=== PATIENT | female | born 1995 | race Caucasian/White ===

== ENCOUNTER 2024-03-18 12:54 | Outpatient (CLI) | payer OTHER, SELFPAY ==
[2024-03-18 13:20] VITALS: BP 109/67; PULSE 87
[2024-03-18 13:30] VITALS: BP 112/71; PULSE 88
[2024-03-18 14:13] LABS: Appearance Urine Cloudy (Clear); Bacteria Urine Rare /hpf; Bilirubin Urine Negative (Negative); Blood Urine Negative (Negative); Color Urine Yellow (Yellow); Glucose Urine UA Negative (Negative); Ketones Urine Trace mg/dL (Negative); Leukocyte Esterase Ur 1+ LEU/UL (Negative); Nitrate Urine Negative (Negative); Non Pathogenic Casts 0-2; Protein Urine Negative (Negative); RBC Urine 0-2 /hpf (0-2); Specific Grav Ur 1.019 (1.001-1.035); Squamous Epithelial Cell Urine Moderate /hpf (Few); pH Urine 7.5 (5.0-9.0)
[2024-03-18 14:18] LABS: Add Urine Microscopic? YES
[2024-03-18 14:22] VITALS: BP 112/71; PULSE 87
--- NOTE | 2024-03-18 14:27 | PC.NURSE ---
Dr. Dhillon (covering for Dr. Sharp) informed of pt's arrival with c/o leakage of fluid last night, also states she had a period where she had 8-9 contractions/hr last night, 3 contractions noted today in over 1 hr, reactive NST, ROM plus was negative. Discussed UA results that were sent due to pt c/o increased urinary frequency over the last few days. Order for discharge received.
== END 2024-03-18 14:36 | disposition home or self-care (01) ==
LOC: ANHOBOP 13:01 → ANHOBPP 13:01
PROVIDERS: Obstetrics & Gynecology; Visit Provider Obstetrics & Gynecology
DX: O42.90 Premature rupture of membranes, unspecified as to length of time between rupture and onset of labor, unspecified weeks of gestation (principal); Z3A.00 Weeks of gestation of pregnancy not specified
CPT/HCPCS: 59025; 81001; 84112; 87086; 99199

== ENCOUNTER 2024-03-27 22:54 | Observation (INO) | payer OTHER, SELFPAY ==
--- NOTE | 2024-03-27 23:21 | OBADM ---
This patient, Janna Talbot, admitted to the OB room Labor/Delivery/Recovery 105 for observation. Patient/family oriented to hospital policies and general routines including ID bracelet, bed and alarms, visiting hours, pain management, procedures, bathroom and other care routines, personal items, smoking policy, room service/diet, and visiting hours. Patient/Family are encouraged to report perceived risks to care and to ask questions if they do not understand what they are told or what they should do.
[2024-03-27 23:28] VITALS: BP 117/72; PULSE 83
[2024-03-27 23:28] LABS: Appearance Urine Cloudy (Clear); Bacteria Urine 1+ /hpf; Bilirubin Urine Negative (Negative); Blood Urine Negative (Negative); Color Urine Dark Yellow (Yellow); Glucose Urine UA Negative (Negative); Ketones Urine 2+ mg/dL (Negative); Leukocyte Esterase Ur 1+ LEU/UL (Negative); Nitrate Urine Negative (Negative); Non Pathogenic Casts 0-2; Protein Urine Trace mg/dL (Negative); RBC Urine 0-2 /hpf (0-2); Squamous Epithelial Cell Urine Moderate /hpf (Few); pH Urine 5.5 (5.0-9.0)
[2024-03-27 23:35] LABS: Add Urine Microscopic? YES
--- NOTE | 2024-03-27 23:48 | PC.NURSE ---
2141- MD called and made aware of pts arrival to the unit, chief c/o contractions and lower back pain as well as feelings of urinary retention. MD made aware of UA results. Orders received to orally hydrate, perform SVE and repeat SVE in one hour.
[2024-03-28] VITALS: BP 126/72; PULSE 83
[2024-03-28] MEDS: ACETAMINOPHEN 500 MG TABLET 1000 MG PO (01:04)
--- NOTE | 2024-03-28 01:07 | PC.NURSE ---
0054- RN called MD and updated her on SVE as well as contraction pattern and heart tracing. MD updated on pts back discomfort. Order received for 1gm of Tylenol or 5-7mg of IM Morphine. RN to repeat SVE in 1 hour. Orders received to call back if cervical change is made or to discharge if vital signs/ FHT tracing is reassuring/ and no cervical change is made. 0103- RN discussed plan of care with pt. RN then offered pt tylenol or morphine. Pt chooses Tylenol and agrees with plan of care. no questions at this time.
--- NOTE | 2024-03-31 07:58 | P.PNOB_ITS ---
OB - Triage/Final Diagnosis Visit Information Comments/Additional reasons for admission: I have assessed the risk for this patient, Janna Talbot, and determined that she would benefit from observation care. Evaluation Laboratory results: Laboratory Tests 03/27/24 23:15 Urine Color Dark yellow Urine Appearance Cloudy H Urine pH 5.5 Ur Specific [place] 1.030 Urine Protein Trace Urine Glucose (UA) Negative Urine Ketones 2+ H Ur Blood (Man) Negative Urine Nitrate Negative Urine Bilirubin Negative Urine Urobilinogen 1.0 Leukocyte Esterase Rfl 1+ H Urine RBC 0-2 Urine WBC 6-10 H Ur Squamous Epith Cells Moderate Urine Bacteria 1+ H Urine Casts 0-2 Final Diagnosis (1) contractions: Code(s): O47.00 - False labor before 37 completed weeks of gestation, unspecified trimester Status: Acute
== END 2024-03-28 02:25 | disposition home or self-care (01) ==
PROVIDERS: Obstetrics & Gynecology; Admitting Provider Obstetrics & Gynecology; Visit Provider Obstetrics & Gynecology
DX: O47.00 False labor before 37 completed weeks of gestation, unspecified trimester (principal); Z3A.00 Weeks of gestation of pregnancy not specified
CPT/HCPCS: 81001; 87077; 87086; 87088; A9270; G0378; G0379

== ENCOUNTER 2024-03-29 01:30 | Observation (INO) | payer OTHER, SELFPAY ==
--- NOTE | 2024-03-29 01:40 | OBADM ---
This patient, Janna Talbot, admitted to the OB room Labor/Delivery/Recovery 102 for observation. Patient/family oriented to hospital policies and general routines including ID bracelet, bed and alarms, visiting hours, pain management, procedures, bathroom and other care routines, personal items, smoking policy, room service/diet, and visiting hours. Patient/Family are encouraged to report perceived risks to care and to ask questions if they do not understand what they are told or what they should do.
[2024-03-29 03:02] VITALS: BP 95/48; PULSE 91
--- NOTE | 2024-04-21 11:51 | PM.OBTRLD ---
OB - Triage/Final Diagnosis Visit Information Comments/Additional reasons for admission: I have assessed the risk for this patient, Janna Talbot, and determined that she would benefit from observation care. Final Diagnosis (1) Dehydration: Code(s): E86.0 - Dehydration Status: Acute (2) contractions: Code(s): O47.00 - False labor before 37 completed weeks of gestation, unspecified trimester Status: Acute
== END 2024-03-29 03:10 | disposition home or self-care (01) ==
PROVIDERS: Admitting Provider Obstetrics & Gynecology; Visit Provider Obstetrics & Gynecology
DX: O47.03 False labor before 37 completed weeks of gestation, third trimester (principal); O99.282 Endocrine, nutritional and metabolic diseases complicating pregnancy, second trimester; E86.0 Dehydration; Z3A.36 36 weeks gestation of pregnancy
CPT/HCPCS: G0378; G0379

== ENCOUNTER 2024-03-30 08:51 | Inpatient (IN) | payer OTHER, SELFPAY ==
[2024-03-30] VITALS (13 sets, daily range): BP systolic 101–108; BP diastolic 45–67; PULSE 26–103; TEMP 37–38.7; O2SAT 98–100
--- NOTE | ~2024-03-30 | US_ITS ---
LIMITED OBSTETRIC ULTRASOUND/BIOPHYSICAL PROFILE Ordering provider: Jimmy Sharp MD History: . BPP, Placenta check, presentation for pain . Comparison: None. FINDINGS: MATERNAL CERVIX: Not visualized. cm which is normal (normal is equal to or greater than 3.0 cm). PRESENTATION: Vertex. Longitudinal lie. PLACENTAL LOCATION: Anterior No previa. HEART RATE: 154 bpm (normal is between 110 to 160 bpm). AMNIOTIC FLUID INDEX: Normal and measures 12 cm. 5th percentile is 7.7 cm and 95th percentile areas 2 4.9 cm. Largest vertical pocket is 5.1 cm. OTHER: Maternal ovaries not visualized. SCORE: breathing movements: 2 movements: 2 tone: 2 Amniotic fluid volume: 2 Total: 8 IMPRESSION: Normal biophysical profile. Reviewed, dictated and finalized at location A. IMPRESSION: Normal biophysical profile.
[2024-03-30 10:16] LABS: Basophils Percent Auto 0.1 % (0.2-1.2); Eosinophils Percent Auto 0.1 % (0-4.4); Hematocrit 28.9 % (37.0-47.0); Hemoglobin 9.6 g/dL (12.0-15.0); Immature Granulocyte Absolute 0.16 K/mm3 (0.00-0.031); Immature Granulocyte Percent A 1.2 % (0-0.5); Immature Platelet Fraction Pct 16.2 % (0.9-11.2); Lymphocytes Absolute Auto 0.93 K/mm3 (0.9-3.2); Lymphocytes Percent Auto 6.8 % (18.3-44.2); Mean Corpuscular HGB Conc 33.2 g/dl (32-36); Mean Corpuscular Hemoglobin 29.2 pg (26-34); Mean Corpuscular Volume 87.8 fl (80-100); Monocytes Absolute Auto 0.7 K/mm3 (0.1-0.6); Monocytes Percent Auto 5.3 % (2.6-8.5); Neutrophils Absolute Auto 11.8 K/mm3 (1.3-6.7); Neutrophils Percent Auto 86.5 % (45.5-73.1); Platelet Count Result 106 k/mm3 (150-375); Red Blood Count 3.29 M/mm3 (4.2-5.4); Red Cell Distribution Width 13.1 % (11.5-14.5); White Blood Count 13.6 K/mm3 (4.5-10.0)
[2024-03-30] MEDS: AMPICILLIN 2 GM/NS 100 ML 2 GM/100 ML BAG IVPB (10:23)
[2024-03-30] MEDS: LACTATED RINGERS 1,000 ML 999 ML IV CONT ×3 (10:24→20:00)
[2024-03-30 10:58] LABS: SARS-CoV-2 RNA PCR Negative (Negative)
[2024-03-30] MEDS: ACETAMINOPHEN 500 MG TABLET 1000 MG PO ×2 (11:20→19:30)
[2024-03-30] MEDS: FAMOTIDINE 20 MG/2 ML VIAL IV PUSH (12:15)
[2024-03-30 12:21] LABS: Appearance Urine Clear (Clear); Bacteria Urine None Seen /hpf; Bilirubin Urine Negative (Negative); Blood Urine Negative (Negative); Color Urine Yellow (Yellow); Glucose Urine UA Negative (Negative); Ketones Urine 4+ mg/dL (Negative); Leukocyte Esterase Ur Trace LEU/UL (Negative); Nitrate Urine Negative (Negative); Non Pathogenic Casts 0-2; Protein Urine Trace mg/dL (Negative); RBC Urine 0-2 /hpf (0-2); Specific Grav Ur 1.015 (1.001-1.035); Squamous Epithelial Cell Urine None Seen /hpf (Few); WBC Urine 0-5 /hpf (0-3)
[2024-03-30 12:28] LABS: Add Urine Microscopic? YES
[2024-03-30 12:34] LABS: Alanine Aminotransferase 13 U/L (6-35); Albumin Level 3.5 g/dL (3.5-5.1); Alkaline Phosphatase 157 U/L (38-126); Anion Gap 12 mmol/L (4-12); Aspartate Amino Transferase 22 U/L (14-36); Bilirubin,Total 1.2 mg/dL (0.2-1.3); Blood Urea Nitrogen 5 mg/dL (7-17); Calcium 8.4 mg/dL (8.4-10.2); Carbon Dioxide 17 mmol/L (22-30); Chloride 103 mmol/L (98-107); Estimated Glomerular Filt Rate > 60; Glucose 69 mg/dL (65-110); Potassium 3.4 mmol/L (3.4-5.0); Sodium 132 mmol/L (137-145); Uric Acid 6.1 mg/dL (2.5-7.5)
[2024-03-30 12:35] LABS: Creatinine Urine 84.7 mg/dL; Total Protein Urine Random 12 mg/dL; Ur Ttl Prot Creatinine Ratio 0.14 mg/mg (0-0.20)
[2024-03-30 13:11] LABS: INR 1.1
[2024-03-30 13:12] LABS: Fibrinogen 488 mg/dl (215-510); Partial Thromboplastin Time 31.7 Seconds (22.3-36.8)
[2024-03-30] MEDS: AMPICILLIN 1 GM/NS 50 ML 1 GM/50 ML BAG IVPB ×3 (14:41→22:30)
--- NOTE | 2024-03-30 15:22 | PM.IMHP ---
H&P: HPI History of Present Illness Date/Time: 03/30/24 15:22 Chief Complaint: Contractions Narrative: Patient is a 28 y/o at 36 6/7 presented to L and D this morning with complaints of contractions. Her cervix exam was unchanged from two recent prior exams from this weekend which she came in for contractions. tracing showed tachycardia which did improve with IV hydration. Irregular contractions. position could not be palpated on exam. Ultrasound performed to check for position and placental check. No abnormalities noted with placenta and fetus confirmed vertex. CHANO normal. Urine culture results from the weekend did return positive for GBS. IV hydration was started and IV Ampicillin. She was barbi irregularly. She c/o fatigue. She did have low grade temp of 99.9 on L and D. Covid test performed and was negative. She did state she had temp this weekend. Denies CVA tenderness. tachycardia did improve with IV hydration. She continued to have irregular contractions. tachycardia did improve with IV hydration. She also complained of some intermittent mid epigastric pain. [facility] labs performed. Labs significant for thrombocytopenia, platelets- 106, they were 110 on 03/20. Normal blood pressures and normal P/C ratio. She denies headache, scotomata or RUQ pain. Review of Systems Review of Systems: All systems reviewed & are unremarkable except as noted in HPI and below Constitutional: Constitutional: Reports no additional constitutional complaints and Denies headache(s) Eyes: Eyes: Denies spots in vision ENT: Reports system reviewed and no additional complaints, except as documented and Denies headache(s) Cardiovascular: Cardiovascular: Denies chest pain and Denies dyspnea Respiratory: Respiratory: Denies dyspnea Gastrointestinal: Gastrointestinal: Reports no additional gastrointestinal complaints Genitourinary: Genitourinary: Reports amenorrhea Musculoskeletal: Musculoskeletal: Reports no additional musculoskeletal complaints Integumentary/Breasts: Skin/Breast: Denies breast mass and Denies rash Neurologic: Denies headache(s) Psychiatric: Psychiatric: Reports no additional psychiatric complaints [facility] Past Medical History Medical History Headache Surgical History Surgical History [place] teeth removed Family History Family History Father Hypertension Grandparent Cervical cancer Social History Social History Smoking status: Never smoker Alcohol intake: never Substance use: never Do You Feel Safe in your Home?: Yes Lack of Transportation: No Lack of Food: Never True Current Housing: I Have Housing Concerned About Future Housing: No Difficulty Paying Gas/Electric Bills: No Difficulty Paying for Meds: No Currently Unemployed: No Education: Bachelor's Degree Difficulty w/ Childcare or Family Care: No Spiritual care concerns: No Meds Home Medications and Allergies Home Medications Medication Instructions Recorded Confirmed Type prenat.vits,julieta,[id number] 1 tablet 03/30/24 History Allergies Allergy/AdvReac Type Severity Reaction Status Date / Time No Known Allergies Allergy Verified 03/23/24 11:38 Vital Signs Vital Signs - 24 hr 03/30/24 09:30 03/30/24 09:06 03/30/24 09:11 Temperature 98.6 F 99.9 F H Pulse Rate 103 H Blood Pressure 101/45 L 03/30/24 13:00 03/30/24 14:07 03/30/24 11:20 Temperature 98.9 F 99.6 F 99.9 F H Pulse Rate Blood Pressure Exam Const: General: no acute distress Eyes: General: appearance normal, both eyes and all related structures Resp: Effort & Inspection: normal respiratory effort Cardio: Rate: regular rate GI: Other: Gravid no fundal t
--- NOTE | 2024-03-30 16:49 | PM.OBPNVD ---
OB - PN: Subj Subjective Date/time seen: 03/30/24 1400 Cat 145, cervix 5/70/-3, irreg ctx. Continue IV antibiotics and hydration. OB - PN: Obj Data Labs 03/30/24 10:04 03/30/24 12:14 Labs: Laboratory Results - last 24 hr 03/30/24 03/30/24 03/30/24 10:04 10:17 12:08 WBC 13.6 H RBC 3.29 L Hgb 9.6 L Hct 28.9 L MCV 87.8 MCH 29.2 MCHC 33.2 RDW 13.1 Plt Count 106 L MPV 13.0 H Immature Gran % (Auto) 1.2 H Neut % (Auto) 86.5 H Lymph % (Auto) 6.8 L [place] % (Auto) 5.3 Eos % (Auto) 0.1 Baso % (Auto) 0.1 L Lymph # (Auto) 0.93 [place] # (Auto) 0.7 H Eos # (Auto) 0.0 Baso # (Auto) 0.0 Abs Immat Gran (auto) 0.16 H Absolute Neuts (auto) 11.8 H Absolute Nucleated RBC 0.000 Nucleated RBC % 0.0 % Immature Plt Fraction 16.2 H PT INR APTT Fibrinogen Sodium Potassium Chloride Carbon Dioxide Anion Gap BUN Creatinine Estim Creat Clear Calc Estimated GFR Glucose Uric Acid Calcium Total Bilirubin AST ALT Alkaline Phosphatase Total Protein Albumin Urine Color Yellow Urine Appearance Clear Urine pH 6.0 Ur Specific [place] 1.015 Urine Protein Trace Urine Glucose (UA) Negative Urine Ketones 4+ H Ur Blood (Man) Negative Urine Nitrate Negative Urine Bilirubin Negative Urine Urobilinogen 1.0 Ur Leukocyte Esterase Trace H Urine RBC 0-2 Urine WBC 0-5 Ur Squamous Epith Cells None seen Urine Bacteria None seen Urine Casts 0-2 U Random Total Protein Urine Creatinine Protein/Creat Ratio 2 SARS-CoV-2 RNA (RT-PCR) Negative 03/30/24 03/30/24 12:14 12:47 WBC RBC Hgb Hct MCV MCH MCHC RDW Plt Count MPV Immature Gran % (Auto) Neut % (Auto) Lymph % (Auto) [place] % (Auto) Eos % (Auto) Baso % (Auto) Lymph # (Auto) [place] # (Auto) Eos # (Auto) Baso # (Auto) Abs Immat Gran (auto) Absolute Neuts (auto) Absolute Nucleated RBC Nucleated RBC % % Immature Plt Fraction PT 15.0 H INR 1.1 APTT 31.7 Fibrinogen 488 Sodium 132 L Potassium 3.4 Chloride 103 Carbon Dioxide 17 L Anion Gap 12 BUN 5 L Creatinine 0.50 L Estim Creat Clear Calc Not Reportable Estimated GFR > 60 Glucose 69 Uric Acid 6.1 Calcium 8.4 Total Bilirubin 1.2 AST 22 ALT 13 Alkaline Phosphatase 157 H Total Protein 7.0 Albumin 3.5 Urine Color Urine Appearance Urine pH Ur Specific [place] Urine Protein Urine Glucose (UA) Urine Ketones Ur Blood (Man) Urine Nitrate Urine Bilirubin Urine Urobilinogen Ur Leukocyte Esterase Urine RBC Urine WBC Ur Squamous Epith Cells Urine Bacteria Urine Casts U Random Total Protein 12 Urine Creatinine 84.7 Protein/Creat Ratio 2 0.14 SARS-CoV-2 RNA (RT-PCR) Imaging Radiologist's impression: Impressions Obstetrics US/Biophysical Profile 03/30/24 13:49 IMPRESSION: Normal biophysical profile. OB - PN A/P Time Spent With Patient Time: Total time spent is greater than 50% in coordination of care (as documented) at patient's floor/unit and/or counseling patient:
[2024-03-30 18:25] LABS: OBXCEM ROM Plus Negative
[2024-03-31] VITALS (81 sets, daily range): BP systolic 94–138; BP diastolic 50–86; PULSE 81–143; RESP 18–20; TEMP 36.2–37.7; O2SAT 87–100; BMI 29.2
[2024-03-31] MEDS: ACETAMINOPHEN 500 MG TABLET 1000 MG PO ×2 (01:09→14:46)
[2024-03-31] MEDS: AMPICILLIN 1 GM/NS 50 ML 1 GM/50 ML BAG IVPB ×3 (03:58→11:39)
[2024-03-31 05:49] LABS: Basophils Percent Auto 0.1 % (0.2-1.2); Eosinophils Percent Auto 0.3 % (0-4.4); Hemoglobin 9.1 g/dL (12.0-15.0); Immature Granulocyte Absolute 0.16 K/mm3 (0.00-0.031); Immature Granulocyte Percent A 1.6 % (0-0.5); Immature Platelet Fraction Pct 14.6 % (0.9-11.2); Lymphocytes Percent Auto 10.8 % (18.3-44.2); Mean Corpuscular HGB Conc 32.5 g/dl (32-36); Mean Corpuscular Hemoglobin 28.9 pg (26-34); Mean Corpuscular Volume 88.9 fl (80-100); Mean Platelet Volume 12.9 fl (7.4-10.4); Monocytes Absolute Auto 0.5 K/mm3 (0.1-0.6); Neutrophils Absolute Auto 8.4 K/mm3 (1.3-6.7); Neutrophils Percent Auto 82.2 % (45.5-73.1); Platelet Count Result 101 k/mm3 (150-375); Red Blood Count 3.15 M/mm3 (4.2-5.4); Red Cell Distribution Width 13.3 % (11.5-14.5); White Blood Count 10.2 K/mm3 (4.5-10.0)
--- NOTE | 2024-03-31 07:50 | PM.OBPNVD ---
OB - PN: Subj Subjective Date/time seen: 03/31/24 07:50 Interval history: She states contractions increasing this am. OB - PN: Obj Data Labs 03/31/24 05:36 03/30/24 12:14 Labs: Laboratory Results - last 24 hr 03/30/24 03/30/24 03/30/24 10:04 10:17 12:08 WBC 13.6 H RBC 3.29 L Hgb 9.6 L Hct 28.9 L MCV 87.8 MCH 29.2 MCHC 33.2 RDW 13.1 Plt Count 106 L MPV 13.0 H Immature Gran % (Auto) 1.2 H Neut % (Auto) 86.5 H Lymph % (Auto) 6.8 L [place] % (Auto) 5.3 Eos % (Auto) 0.1 Baso % (Auto) 0.1 L Lymph # (Auto) 0.93 [place] # (Auto) 0.7 H Eos # (Auto) 0.0 Baso # (Auto) 0.0 Abs Immat Gran (auto) 0.16 H Absolute Neuts (auto) 11.8 H Absolute Nucleated RBC 0.000 Nucleated RBC % 0.0 % Immature Plt Fraction 16.2 H PT INR APTT Fibrinogen Sodium Potassium Chloride Carbon Dioxide Anion Gap BUN Creatinine Estim Creat Clear Calc Estimated GFR Glucose Uric Acid Calcium Total Bilirubin AST ALT Alkaline Phosphatase Total Protein Albumin Urine Color Yellow Urine Appearance Clear Urine pH 6.0 Ur Specific [place] 1.015 Urine Protein Trace Urine Glucose (UA) Negative Urine Ketones 4+ H Ur Blood (Man) Negative Urine Nitrate Negative Urine Bilirubin Negative Urine Urobilinogen 1.0 Ur Leukocyte Esterase Trace H Urine RBC 0-2 Urine WBC 0-5 Ur Squamous Epith Cells None seen Urine Bacteria None seen Urine Casts 0-2 U Random Total Protein Urine Creatinine Protein/Creat Ratio 2 Membranes Rupture Membranes Rup Com SARS-CoV-2 RNA (RT-PCR) Negative KB Hemoglobin 03/30/24 03/30/24 03/30/24 12:14 12:40 12:47 WBC RBC Hgb Hct MCV MCH MCHC RDW Plt Count MPV Immature Gran % (Auto) Neut % (Auto) Lymph % (Auto) [place] % (Auto) Eos % (Auto) Baso % (Auto) Lymph # (Auto) [place] # (Auto) Eos # (Auto) Baso # (Auto) Abs Immat Gran (auto) Absolute Neuts (auto) Absolute Nucleated RBC Nucleated RBC % % Immature Plt Fraction PT 15.0 H INR 1.1 APTT 31.7 Fibrinogen 488 Sodium 132 L Potassium 3.4 Chloride 103 Carbon Dioxide 17 L Anion Gap 12 BUN 5 L Creatinine 0.50 L Estim Creat Clear Calc Not Reportable Estimated GFR > 60 Glucose 69 Uric Acid 6.1 Calcium 8.4 Total Bilirubin 1.2 AST 22 ALT 13 Alkaline Phosphatase 157 H Total Protein 7.0 Albumin 3.5 Urine Color Urine Appearance Urine pH Ur Specific [place] Urine Protein Urine Glucose (UA) Urine Ketones Ur Blood (Man) Urine Nitrate Urine Bilirubin Urine Urobilinogen Ur Leukocyte Esterase Urine RBC Urine WBC Ur Squamous Epith Cells Urine Bacteria Urine Casts U Random Total Protein 12 Urine Creatinine 84.7 Protein/Creat Ratio 2 0.14 Membranes Rupture Rom plus negative Membranes Rup Com Yes SARS-CoV-2 RNA (RT-PCR) KB Hemoglobin Negative 03/31/24 05:36 WBC 10.2 H RBC 3.15 L Hgb 9.1 L Hct 28.0 L MCV 88.9 MCH 28.9 MCHC 32.5 RDW 13.3 Plt Count 101 L MPV 12.9 H Immature Gran % (Auto) 1.6 H Neut % (Auto) 82.2 H Lymph % (Auto) 10.8 L [place] % (Auto) 5.0 Eos % (Auto) 0.3 Baso % (Auto) 0.1 L Lymph # (Auto) 1.10 [place] # (Auto) 0.5 Eos # (Auto) 0.0 Baso # (Auto) 0.0 Abs Immat Gran (auto) 0.16 H Absolute Neuts (auto) 8.4 H Absolute Nucleated RBC 0.000 Nucleated RBC % 0.0 % Immature Plt Fraction 14.6 H PT INR APTT Fibrinogen Sodium Potassium Chloride Carbon Dioxide Anion Gap BUN Creatinine Estim Creat Clear Calc Estimated GFR Glucose Uric Acid Calcium Total Bilirubin AST ALT Alkaline Phosphatase Total Protein Album
--- NOTE | 2024-03-31 09:09 | PM.OBPNVD ---
OB - PN: Subj Subjective Date/time seen: 03/31/24 09:09 Interval history: Cervix 6/70/-3. AROM. If not progressing after few hours will augment with Pitocin. OB - PN: Obj Data Labs 03/31/24 05:36 03/30/24 12:14 Labs: Laboratory Results - last 24 hr 03/30/24 03/30/24 03/30/24 10:04 10:17 12:08 WBC 13.6 H RBC 3.29 L Hgb 9.6 L Hct 28.9 L MCV 87.8 MCH 29.2 MCHC 33.2 RDW 13.1 Plt Count 106 L MPV 13.0 H Immature Gran % (Auto) 1.2 H Neut % (Auto) 86.5 H Lymph % (Auto) 6.[address] [place] % (Auto) 5.3 Eos % (Auto) 0.1 Baso % (Auto) 0.1 L Lymph # (Auto) 0.93 [place] # (Auto) 0.7 H Eos # (Auto) 0.0 Baso # (Auto) 0.0 Abs Immat Gran (auto) 0.16 H Absolute Neuts (auto) 11.8 H Absolute Nucleated RBC 0.000 Nucleated RBC % 0.0 % Immature Plt Fraction 16.2 H PT INR APTT Fibrinogen Sodium Potassium Chloride Carbon Dioxide Anion Gap BUN Creatinine Estim Creat Clear Calc Estimated GFR Glucose Uric Acid Calcium Total Bilirubin AST ALT Alkaline Phosphatase Total Protein Albumin Urine Color Yellow Urine Appearance Clear Urine pH 6.0 Ur Specific [place] 1.015 Urine Protein Trace Urine Glucose (UA) Negative Urine Ketones 4+ H Ur Blood (Man) Negative Urine Nitrate Negative Urine Bilirubin Negative Urine Urobilinogen 1.0 Ur Leukocyte Esterase Trace H Urine RBC 0-2 Urine WBC 0-5 Ur Squamous Epith Cells None seen Urine Bacteria None seen Urine Casts 0-2 U Random Total Protein Urine Creatinine Protein/Creat Ratio 2 Membranes Rupture Membranes Rup Com SARS-CoV-2 RNA (RT-PCR) Negative KB Hemoglobin 03/30/24 03/30/24 03/30/24 12:14 12:40 12:47 WBC RBC Hgb Hct MCV MCH MCHC RDW Plt Count MPV Immature Gran % (Auto) Neut % (Auto) Lymph % (Auto) [place] % (Auto) Eos % (Auto) Baso % (Auto) Lymph # (Auto) [place] # (Auto) Eos # (Auto) Baso # (Auto) Abs Immat Gran (auto) Absolute Neuts (auto) Absolute Nucleated RBC Nucleated RBC % % Immature Plt Fraction PT 15.0 H INR 1.1 APTT 31.7 Fibrinogen 488 Sodium 132 L Potassium 3.4 Chloride 103 Carbon Dioxide 17 L Anion Gap 12 BUN 5 L Creatinine 0.50 L Estim Creat Clear Calc Not Reportable Estimated GFR > 60 Glucose 69 Uric Acid 6.1 Calcium 8.4 Total Bilirubin 1.2 AST 22 ALT 13 Alkaline Phosphatase 157 H Total Protein 7.0 Albumin 3.5 Urine Color Urine Appearance Urine pH Ur Specific [place] Urine Protein Urine Glucose (UA) Urine Ketones Ur Blood (Man) Urine Nitrate Urine Bilirubin Urine Urobilinogen Ur Leukocyte Esterase Urine RBC Urine WBC Ur Squamous Epith Cells Urine Bacteria Urine Casts U Random Total Protein 12 Urine Creatinine 84.7 Protein/Creat Ratio 2 0.14 Membranes Rupture Rom plus negative Membranes Rup Com Yes SARS-CoV-2 RNA (RT-PCR) KB Hemoglobin Negative 03/31/24 05:36 WBC 10.2 H RBC 3.15 L Hgb 9.1 L Hct 28.0 L MCV 88.9 MCH 28.9 MCHC 32.5 RDW 13.3 Plt Count 101 L MPV 12.9 H Immature Gran % (Auto) 1.6 H Neut % (Auto) 82.2 H Lymph % (Auto) 10.[address] [place] % (Auto) 5.0 Eos % (Auto) 0.3 Baso % (Auto) 0.1 L Lymph # (Auto) 1.10 [place] # (Auto) 0.5 Eos # (Auto) 0.0 Baso # (Auto) 0.0 Abs Immat Gran (auto) 0.16 H Absolute Neuts (auto) 8.4 H Absolute Nucleated RBC 0.000 Nucleated RBC % 0.0 % Immature Plt Fraction 14.6 H PT INR APTT Fibrinogen Sodium Potassium Chloride Carbon Dioxide Anion Gap BUN Creatinine Estim Creat Clear Calc Estimated GFR Glucose Uric Acid Calcium Total Bilirubin AST ALT Alkal
[2024-03-31] MEDS: LACTATED RINGERS 500 ML 999 ML IV CONT (09:10)
--- NOTE | 2024-03-31 09:32 | LDADM ---
This patient, Janna Talbot, was admitted to Labor/Delivery/Recovery 105 on 03/31/24 at 08:29. Plans for labor, pain management and were discussed with patient. Patient/family oriented to hospital policies and general routines including ID bracelet, bed and alarms, visiting hours, pain management, procedures, bathroom and other care routines, personal items, smoking policy, room service/diet and guest tray routines, security routines, and visiting hours. Patient/Family are encouraged to report perceived risks to care and to ask questions if they do not understand what they are told or what they should do. See OBIX for further documentation.
[2024-03-31 10:22] LABS: HIV 1/2 Ab P24 Ag Result Negative (Negative)
[2024-03-31] MEDS: OXYTOCIN 30 UNITS/NS 500 ML 30 UNITS/500 ML BAG IV CONT (11:40)
[2024-03-31] MEDS: LACTATED RINGERS 1,000 ML 125 ML IV CONT (11:41)
--- NOTE | 2024-03-31 13:12 | WPDANESEPPF ---
Anes - Initial Pre Proc Eval Procedure: labor epidural Date/Time: 03/31/24 13:12 Surgeon: Jimmy Sharp MD Pre Op Diagnosis: labor pain Pre Op Diagnosis: Contractions/Leaking Patient Data Age: 28 Gender: F Height: 1.68 m Weight: 82 kg Last Vital Signs Temp 37.0 C 03/31/24 12:21 Pulse 91 03/31/24 12:30 BP 123/81 03/31/24 12:30 Pulse Ox 100 03/31/24 12:54 O2 Del Method Room Air 03/30/24 09:30 Allergies Allergy/AdvReac Type Severity Reaction Status Date / Time No Known Allergies Allergy Verified 03/23/24 11:38 Home Medications Medication Instructions Recorded Confirmed Type prenat.vits,julieta,[id number] 1 tablet PO DAILY 03/30/24 03/31/24 History Laboratory Tests 03/30/24 03/30/24 03/31/24 12:40 12:47 05:36 WBC 10.2 H K/mm3 (4.5-10.0) RBC 3.15 L M/mm3 (4.2-5.4) Hgb 9.1 L g/dL (12.0-15.0) Hct 28.0 L % (37.0-47.0) MCV 88.9 fl (80-100) MCH 28.9 pg (26-34) MCHC 32.5 g/dl (32-36) RDW 13.3 % (11.5-14.5) Plt Count 101 L k/mm3 (150-375) MPV 12.9 H fl (7.4-10.4) Immature Gran % (Auto) 1.6 H % (0-0.5) Neut % (Auto) 82.2 H % (45.5-73.1) Lymph % (Auto) 10.8 L % (18.3-44.2) [place] % (Auto) 5.0 % (2.6-8.5) Eos % (Auto) 0.3 % (0-4.4) Baso % (Auto) 0.1 L % (0.2-1.2) Lymph # (Auto) 1.10 K/mm3 (0.9-3.2) [place] # (Auto) 0.5 K/mm3 (0.1-0.6) Eos # (Auto) 0.0 K/mm3 (0-0.3) Baso # (Auto) 0.0 K/mm3 (0.0-0.1) Abs Immat Gran (auto) 0.16 H K/mm3 (0.00-0.031) Absolute Neuts (auto) 8.4 H K/mm3 (1.3-6.7) Absolute Nucleated RBC 0.000 K/mm3 (0.0-0.012) Nucleated RBC % 0.0 % (0.0-0.2) % Immature Plt Fraction 14.6 H % (0.9-11.2) PT 15.0 H Seconds (11.1-14.7) INR 1.1 APTT 31.7 Seconds (22.3-36.8) Fibrinogen 488 mg/dl (215-510) Membranes Rupture Rom plus negative Membranes Rup Com Yes RPR HIV 1&2 Ab/P24 Ag 4thGn Blood Type Antibody Screen KB Hemoglobin Negative 03/31/24 09:11 WBC RBC Hgb Hct MCV MCH MCHC RDW Plt Count MPV Immature Gran % (Auto) Neut % (Auto) Lymph % (Auto) [place] % (Auto) Eos % (Auto) Baso % (Auto) Lymph # (Auto) [place] # (Auto) Eos # (Auto) Baso # (Auto) Abs Immat Gran (auto) Absolute Neuts (auto) Absolute Nucleated RBC Nucleated RBC % % Immature Plt Fraction PT INR APTT Fibrinogen Membranes Rupture Membranes Rup Com RPR Pending HIV 1&2 Ab/P24 Ag 4thGn Negative (Negative) Blood Type O Positive Antibody Screen Negative KB Hemoglobin Patient hx anesthesia problems: none Family hx anesthesia problems: none Results Review: All pre-operative results and documents have been reviewed as part of the pre-operative evaluation. [facility] Past Medical History Medical History Headache Surgical History Surgical History [place] teeth removed Family History Family History Father Hypertension Grandparent Cervical cancer Social History Social History Smoking status: Never smoker Alcohol intake: never Substance use: never Do You Feel Safe in your Home?: Yes Lack of Transportation: No Lack of Food: Never True Current Housing: I Have Housing Concerned About Future
[2024-03-31] MEDS: OXYTOCIN 30 UNITS/NS 500 ML 30 UNITS/500 ML BAG 125 UNITS IV CONT (13:29)
[2024-03-31 14:31] LABS: Rapid Plasma Reagin Non-Reactive (NonReactive)
--- NOTE | 2024-03-31 16:48 | OBPPTRN ---
Addendum entered by Ashley Rodriguez RN 03/31/24 16:49: Pt admitted at 1626. Original Note: Patient transferred to post room # 284 via wheelchair. Support person present. Oriented to unit, room, information board, rooming in, admission packet and security measures. Patient verbalizes understanding.
--- NOTE | 2024-03-31 17:33 | PC.NURSE ---
1700. Introductions were made, then consulted with patient to assess needs related to . Mother explained she has bfed her other 3 babies, and plans to exclusively bfeed this baby. She reported that she was able to nurse baby for 20 min after delivery. Encouraged understanding of the benefits of skin to skin (demonstrating unwrapping infant and placing upright on her chest), stimulating with massage touch, changing positions to encourage wakefulness, how to watch for early feeding cues, responsive feeding, feeding on demand (aiming for 8-12 times in 24 hours, about every 2-3 hours), milk production, building/maintaining a milk supply, duration of feeding, signs of adequate intake/output and how to record on the feeding sheet. Mother works well with her infant with encouragement and education. Reviewed positioning and ear, shoulder, hip alignment, supporting the breast to facilitate a deep latch, asymmetrical latch (off-center), leading with the chin with a big, open, wide gape and body close to mother. latched optimally to the [right] breast in [cross cradle position. Education given to the mother of how to visualize the suckling (with good rocking jaw motion), swallows (dropping of the lower jaw) and how to listen for drinking at the breast (the ka sound). was [able] to maintain latch without pain to mother protecting the nipple with optimal positioning and latching. Reviewed comfort measures of healing with a warm, wet washcloth to rinse breast, then leave open to air-dry, good handwashing when or touching the breast/nipples to prevent infection. Mother voiced understanding of skin to skin, stimulating with massage touch, responsive feedings, hand expressed colostrum, talking to to encourage if it has been 2 -2.5 hours since the start of the last , to call if does not latch, or if there is discomfort with . Resources used for education were facilitated with the [visual educational handout& mom and baby guide. Parents voiced understanding of information, demonstrated learning and will call if there is a request for assistance. Reported to the Primary RN.
[2024-03-31] MEDS: AMOXICILLIN 500 MG CAPSULE PO (22:00)
[2024-04-01 05:38] LABS: Hemoglobin 8.4 g/dL (12.0-15.0)
[2024-04-01] MEDS: AMOXICILLIN 500 MG CAPSULE PO (07:21)
[2024-04-01] MEDS: DOCUSATE SODIUM 100 MG CAPSULE PO (07:21)
[2024-04-01] MEDS: MULTIVIT/MIN/PREN/FOL AC/IRON TABLET 1 TAB PO (07:21)
[2024-04-01] MEDS: POLYSACCHARIDE IRON COMPLEX 150 MG CAPSULE PO (07:21)
[2024-04-01 07:45] VITALS: BP 110/70; PULSE 65; RESP 16; TEMP 36.3; O2SAT 100
[2024-04-01 08:50] LABS: Immature Platelet Fraction Pct 16.1 % (0.9-11.2); Mean Platelet Volume 13.1 fl (7.4-10.4); Platelet Count Result 108 k/mm3 (150-375)
--- NOTE | 2024-04-01 13:13 | PM.OBPNVD ---
OB - PN: Subj Subjective Date/time seen: 04/01/24 13:13 Interval history: Cervix 6/70/-3. AROM. If not progressing after few hours will augment with Pitocin. Patient comments: pain well controlled, tolerating diet and other (Decreasing lochia.) [place] baby status: doing well and nursing well [place] feeding status: exclusively breast feeding OB - PN: Obj Data Labs 04/01/24 04:15 03/30/24 12:14 Labs: Laboratory Results - last 24 hr 03/31/24 04/01/24 09:11 04:15 Hgb 8.4 L Hct 26.0 L Plt Count 108 L MPV 13.1 H % Immature Plt Fraction 16.1 H RPR Non-reactive OB - PN A/P Plan day: 1 Plan: routine care Comments: Patient doing well. Request discharge home. Discharge precautions discussed. Time Spent With Patient Time: Total time spent is greater than 50% in coordination of care (as documented) at patient's floor/unit and/or counseling patient: Exam Psych: Affect: normal affect Other: Abd: fundus firm below umbilicus, nontender Perineum: healing Ext: nontender
--- NOTE | 2024-04-01 14:11 | PC.NURSE ---
1258. Consulted with mother concerning needs and she shared her ability to independently latch infant optimally without pain. Mom reports she is able to latch on both breasts and typically feeds for 20-30 min on each side. Mother is feeding appropriately for growth of infant and understands stimulating to eat if needed. Infant has had appropriate feedings in the last 24 hours meets the outcomes for weight, output, blood sugar and jaundice at this time. Reinforced understanding of milk production, transition of milk, signs of adequate intake, transition of stool, prevention/relief of engorgement, plugged ducts, mastitis, responsive watching for feeding cues, the different methods of stimulating to breastfeed 1-3 hours after the start of the last feeding, community resources, and when to call a provider using the resource of the feeding sheet along with the mom and baby guide. Mother voiced understanding of the information shared, is confident to continue effectively her infant at home, when to call for assistance, denies any additional assistance or education at this time. Reported to the Primary RN.
[2024-04-02 15:13] VITALS: BP 120/75; PULSE 71; RESP 18; TEMP 36.8; O2SAT 99
--- NOTE | 2024-04-23 12:34 | PM.OBPRVD ---
OB - Vaginal Delivery Note Procedure Delivery date: 04/23/24 Events: Positive Group B Strep (GBS) and Other ( UTI) Induction method: AROM Delivery augmentation: Pitocin Delivery monitor: External Uterine and Internal Uterine Route of delivery: Episiotomy description: None Laceration Description: None Anesthesia type: Epidural Disposition: Floor Complications: No immediate complications Narrative: she was admitted for inpatient she had false labor. She continued to have contractions. The morning of 03/31. She had antibiotics started for UTI. Her cervix did change to 3-4 cm she had assisted rupture of membranes clear fluid after 2 hours there was no significant change in cervix and Pitocin was started for augmentation. She dilated to complete and delivered a female infant at 12:58 p.m. was vigorously crying upon delivery. She was placed on maternal abdomen. Delayed cord clamping occurred. Cord gases obtained. Baby Date of : 03/31/24 Time of : 12:58 Gestational Age by Date: 37 gender: Female Weight (pounds): 6 Weight (ounces): 7 presentation: vertex position: Right Occiput Anterior Placenta delivery description: Spontaneous Cord Vessel Description: 3 Vessels score one minute: 8 score five minutes: 9
--- NOTE | 2024-05-04 08:59 | PM.OBDSVD ---
DS: Admitting Diagnosis Discharge Date 04/01/24 Admitting Diagnosis Contractions. UTI. DS: Discharge Diagnosis Discharge Diagnosis (1) GBS (group B streptococcus) UTI complicating : Code(s): O23.40 - Unspecified infection of urinary tract in , unspecified trimester; B95.1 - Streptococcus, group B, as the cause of diseases classified elsewhere Status: Acute (2) Active labor: Status: Acute OB - DS: Summary Hospital Course Hospital Course: She was initially admitted for IV hydration. She was started on IV antibiotics for UTI. She progressed to labor. She had an uncomplicated vaginal delivery. Baby did well. She requested discharge to home on day one. She had adequate pain control, decrease lochia, ambulating well, baby was doing well. OB Procedures : Ultrasound OB Procedures Intrapartum: Spontaneous Vag Delivery OB Procedures: : None Peripartum Data Delivery Method: Natural Vaginal Laceration Description: None Episiotomy description: None complications: none Status at Discharge Functional status at discharge: independent ambulation Time Spent with Patient Time attestation: Total time spent providing and/or coordinating discharge services: Exam Const: General: cooperative Orientation/consciousness: oriented to person, oriented to place and oriented to time HENMT: Face/Nose/Sinus: Normal external nose present Eyes: General: appearance normal, both eyes and all related structures Resp: Effort & Inspection: normal respiratory effort GI: Inspection: normal to inspection Skin: General skin exam: normal color Neuro: General: oriented to person, oriented to place and oriented to time Extrem: General: normal to inspection and no calf tenderness Psych: Appearance: grossly normal Mental Status: mental status grossly normal DS: Data Data Completed and Pending Completed studies during hospitalization: Pending at discharge 03/31/24 13:05 Surgical [PTH] Routine Discharge Plan Discharge Attending physician on discharge: Jimmy Sharp Consulting providers: Aashish Joseph Stephen J. Discharging Clinician: Jimmy Sharp Patient Disposition: Home, Self-Care Activity: other - see discharge instructions Diet: regular Discharge Instructions: Education: Mom and Baby Guide Given to: Mother Follow-Up: Call your delivering provider's office for an appointment to be seen in: 4-6 weeks Mom and baby should come to the [facility] for the follow-up appointment. Appointment Date/Time: April 02, 2024 at 2:30 pm What to expect at your follow-up visit: Blood Pressure Check Physical Assessment Call [phone] if you are unable to keep your appointment time. BREAST CARE: * Wear a snug supportive bra. * For engorgement discomfort: Breast Feeding: * Apply warm moist washcloths * Express milk as needed to relieve engorgement * Wear loose clothing Bottle Feeding: * May apply ice packs * For sore nipples: * Identify correct latch-on * Apply warm moist washcloths before and after nursing * Air dry nipples after nursing * May apply Lansinoh cream to nipples EPISIOTOMY/PERINEAL CARE: * Until bleeding stops, use your bernice bottle after urinating * Change your pad frequently throughout the day * You may take sitz baths several times a day (fill your bathtub with warm water and soak for 20 minutes.) Do NOT bathe in the water * No tub baths until seen by your physician - You may shower ACTIVITY: * Rest as much as possible. * Do not exercise or lift anything heavier than your baby (such as laundry or other children.) * Avoid stairs or driving as much as possible. * Do not put anything into the vagina. No douching, tampons, or sexual activity until seen by physician. NOTIFY PHYSICIAN IF
== END 2024-04-01 13:58 | disposition home or self-care (01) | DRG 806 ==
LOC: ANHLDR 03-31 08:41 → ANHOB2 03-31 16:32
PROVIDERS: Admitting Provider Obstetrics & Gynecology; Visit Provider Obstetrics & Gynecology
DX: O36.8330 Maternal care for abnormalities of the fetal heart rate or rhythm, third trimester, not applicable or unspecified (principal); O75.2 Pyrexia during labor, not elsewhere classified; Z37.0 Single live birth; O99.12 Other diseases of the blood and blood-forming organs and certain disorders involving the immune mechanism complicating childbirth; Z3A.37 37 weeks gestation of pregnancy; O99.824 Streptococcus B carrier state complicating childbirth; D69.6 Thrombocytopenia, unspecified; E86.0 Dehydration
CPT/HCPCS: 36415; 76815; 76819; 80053; 81001; 82570; 84112; 84156; 84550; 85014; 85018; 85025; 85049; 85055; 85384; 85460; 85610; 85730; 86592; 86703; 86850; 86900; 86901; 87635; 88307; A9270; G0378; G0379; G0432; J0290; J2590; J2795; J7120

== ENCOUNTER 2024-11-25 01:28 | Day surgery (SDC) | payer OTHER, SELFPAY ==
[2024-11-20 14:39] VITALS: BMI 31.5
[2024-11-25 06:49] VITALS: BP 110/67; PULSE 83; RESP 18; TEMP 36.4; O2SAT 100
[2024-11-25 06:55] LABS: BEDSIDEPREGUCG Negative (Negative)
[2024-11-25] MEDS: LACTATED RINGERS 1,000 ML 150 ML IV CONT (07:00)
--- NOTE | 2024-11-25 07:11 | WPDANESEPPF ---
Anes - Initial Pre Proc Eval Procedure: Operation Date: 11/25/24 08:00 Proposed Procedures p Colonoscopy - Sarwat Ma MD Date/Time: 11/25/24 07:11 Surgeon: Sarwat Ma MD Pre Op Diagnosis: Melena, incomplete defecation Patient Data Age: 29 Gender: F Height: 1.65 m Weight: 93.6 kg Last Vital Signs Temp 36.4 C L 11/25/24 06:49 Pulse 83 11/25/24 06:49 Resp 18 11/25/24 06:49 BP 110/67 11/25/24 06:49 Pulse Ox 100 11/25/24 06:49 O2 Del Method Room Air 11/25/24 06:49 Allergies Allergy/AdvReac Type Severity Reaction Status Date / Time No Known Allergies Allergy Verified 11/25/24 06:46 Home Medications ?Medication ?Instructions ?Recorded ?Confirmed ?Type prenat.vits,julieta,ojx-vjvu-ixuac 1 tablet PO DAILY 03/30/24 11/25/24 History Lactobacillus acidophilus and 1 cap PO DAILY 11/20/24 11/25/24 History rhamnosus 15 billion cell capsule (Probiotic) Laboratory Tests 11/25/24 06:49 POC Urine HCG, Qual Negative (Negative) Patient hx anesthesia problems: none Family hx anesthesia problems: none Results Review: All pre-operative results and documents have been reviewed as part of the pre-operative evaluation. [facility] Past Medical History Medical History (Updated 11/25/24 @ 07:11 by Sonny Kaiser MD) Obesity Surgical History Surgical History [place] teeth removed Family History Family History Father Hypertension Grandparent Cervical cancer Social History Social History Smoking status: Never smoker Alcohol intake: never Alcohol use details: ocassionally. Substance use: never Do You Feel Safe in your Home?: Yes Lack of Transportation: No Lack of Food: Never True Current Housing: I Have Housing Concerned About Future Housing: No Difficulty Paying Gas/Electric Bills: No Difficulty Paying for Meds: No Currently Unemployed: No Education: Don't Know Difficulty w/ Childcare or Family Care: No Living arrangements: with family Spiritual care concerns: No Anes - Eval Final PreProcedure Day of Procedure 11/25/24 07:11 Patient weight: obese Heart: regular rate and rhythm Lungs: clear to auscultation Airway: Mallampati scale class II Neurological: alert and oriented Last oral intake: >/= 8 hours ASA classification: II Emergent: no Anesthetic plan: proceed Anesthesia type and monitoring: general GIVS and standard monitoring Results Review: All pre-operative results and documents have been reviewed as part of the pre-operative evaluation. Informed Consent: The patient's anesthetic plan and its attendant risks and benefits were discussed with the patient/family/POA. Questions were solicited and answers provided to the satisfaction of the patient/family/POA.
--- NOTE | 2024-11-25 07:55 | PM.IMHP ---
H&P: HPI History of Present Illness Date/Time: 11/25/24 07:55 Chief Complaint: New onset constipation Narrative: this patient is referred for colonoscopy due to the fact that she has severe constipation and for the past 6 months. She has 1 or 2 bowel movements per week, always with significant straining, in the absence of abdominal pain, urgency, tenesmus or fever. She has not changed her diet, increased or decreased her weight or started any new medication. Review of Systems Review of Systems: All systems reviewed & are unremarkable except as noted in HPI and below PMFSH Past Medical History Medical History (Updated 11/25/24 @ 07:57 by Sarwat Ma MD) Obesity Surgical History Surgical History [place] teeth removed Family History Family History Father Hypertension Grandparent Cervical cancer Social History Social History Smoking status: Never smoker Alcohol intake: never Alcohol use details: ocassionally. Substance use: never Do You Feel Safe in your Home?: Yes Lack of Transportation: No Lack of Food: Never True Current Housing: I Have Housing Concerned About Future Housing: No Difficulty Paying Gas/Electric Bills: No Difficulty Paying for Meds: No Currently Unemployed: No Education: Don't Know Difficulty w/ Childcare or Family Care: No Living arrangements: with family Spiritual care concerns: No Meds Home Medications and Allergies Home Medications ?Medication ?Instructions ?Recorded ?Confirmed ?Type prenat.vits,julieta,tin-wvft-eijuh 1 tablet PO DAILY 03/30/24 11/25/24 History Lactobacillus acidophilus and 1 cap PO DAILY 11/20/24 11/25/24 History rhamnosus 15 billion cell capsule (Probiotic) Allergies Allergy/AdvReac Type Severity Reaction Status Date / Time No Known Allergies Allergy Verified 11/25/24 06:46 Vital Signs Vital Signs - 24 hr 11/25/24 06:49 Temperature 97.5 F L Pulse Rate 83 Respiratory Rate 18 Blood Pressure 110/67 Pulse Oximetry 100 Oxygen Delivery Room Air Exam Const: General: cooperative and healthy appearing Resp: Effort & Inspection: normal respiratory effort and able to speak in complete sentences Auscultation: clear to auscultation bilaterally Cardio: Rate: regular rate Rhythm: regular rhythm GI: Inspection: normal to inspection GI Palp: No No hepatosplenomegaly present Auscultation: normal bowel sounds Rectal Exam: deferred Skin: General skin exam: normal color Psych: Appearance: grossly normal Mental Status: mental status grossly normal Assessment and Plan Assessment and plan (1) Change in bowel habits: Code(s): R19.4 - Change in bowel habit Status: Acute Assessment and Plan: The patient is deemed a good candidate for the procedure. Consent signed. Will proceed.
[2024-11-25 08:20] VITALS: BP 104/62; PULSE 86; RESP 20; O2SAT 100
[2024-11-25 08:30] VITALS: BP 102/61; PULSE 82; RESP 18; O2SAT 100
[2024-11-25 08:40] VITALS: BP 103/61; PULSE 78; RESP 24; O2SAT 100
== END 2024-11-25 09:30 | disposition home or self-care (01) ==
PROVIDERS: Anesthesiology; Referring Provider Obstetrics & Gynecology; Visit Provider Internal Medicine Gastroenterology
PROC: 0DJD8ZZ Inspection of Lower Intestinal Tract, Via Natural or Artificial Opening Endoscopic (ICD-10-PCS; CPT 45378; principal; 2024-11-25 08:00)
DX: R19.4 Change in bowel habit (principal); E66.9 Obesity, unspecified; Z68.34 Body mass index [BMI] 34.0-34.9, adult; Z98.890 Other specified postprocedural states; Z80.49 Family history of malignant neoplasm of other genital organs
CPT/HCPCS: 45378; J2003; J2704; J7120